=== PATIENT | male | born 1950 | race Caucasian/White ===

== ENCOUNTER 2024-11-10 13:17 | Outpatient (CLI) | payer MEDICARE, OTHER, SELFPAY ==
--- NOTE | ~2024-11-10 | CT_ITS ---
EXAMINATION:CT lung screening DATE: 11/10/2024 13:43 INDICATION: Personal history of nicotine dependence. 100 pack year history. TECHNIQUE: Computed tomography (CT) of the chest was performed without intravenous contrast. Automate d exposure control and iterative reconstruction technique were employed. The dose-length product (DLP ) was 170.15 mGy-cm. COMPARISON: None. FINDINGS: There is mild emphysema. There is mild scarring in paraspinal right lower lobe. Calcified b ilateral lung nodules and calcified right hilar lymph nodes are consistent with old granulomatous dis ease. There is a 5 mm nodule at right major fissure. There is a 5 mm nodule at left major fissure. No pleural effusion. The heart size is normal. There are coronary artery calcifications. No pericardial effusion. There are calcifications of the aortic valve. There are gallstones in the gallbladder, whi ch is normal in size. There is mild thoracic spondylosis. There is mild chronic height loss of T3 allie tebral body. There is an old healed fracture of the sternum. IMPRESSION: 1. Lung-RADS category 2: Benign appearance or behavior. Continue annual screening with noncontrast lo w-dose chest CT in 12 months. Reviewed, dictated and finalized at location A. CISE PHYSIOLOGY PROFESSOR IMPRESSION: 1. Lung-RADS category 2: Benign appearance or behavior. Continue annual screeni ng with noncontrast low-dose chest CT in 12 months.
== END 2024-11-10 13:18 | disposition home or self-care (01) ==
PROVIDERS: PCP Physician Assistant Medical; Visit Provider Physician Assistant Medical
DX: Z12.2 Encounter for screening for malignant neoplasm of respiratory organs (principal); Z87.891 Personal history of nicotine dependence
CPT/HCPCS: 71271

== ENCOUNTER 2025-05-09 09:45 | Outpatient (CLI) | payer MEDICARE, OTHER, SELFPAY ==
--- NOTE | ~2025-05-09 | US_ITS ---
EXAMINATION: US abdomen limited DATE: 05/09/2025 10:22 INDICATION: Cholelithiasis without acute cholecystitis TECHNIQUE: Multiple grayscale and Doppler ultrasound images of the abdomen were obtained. COMPARISON: None FINDINGS: The pancreatic head and body are normal in appearance. The pancreatic tail is not visualized. The vi sualized proximal to mid abdominal aorta and inferior vena cava are normal. Liver has normal echogeni city and contour, with a smooth surface. No liver lesion identified. No intrahepatic biliary duct dil ation suspected. Portal venous flow was seen in the hepatopetal, normal direction and has normal Dopp ler waveform. There is mild bilateral sludge and shadowing gallstones within the otherwise normal-shivani earing gallbladder. Common bile duct normal measuring 4 mm maximal diameter. Sonographic Arevalo sign was reported as negative by the firer watertender. IMPRESSION: 1. Mobile sludge and gallstones in the otherwise normal gallbladder. No findings of acute cholecystit is nor biliary ductal dilation. Reviewed, dictated and finalized at location A. IMPRESSION: 1. Mobile sludge and gallstones in the otherwise normal gallbladder. No finding s of acute cholecystitis nor biliary ductal dilation.
== END 2025-05-09 09:46 | disposition home or self-care (01) ==
PROVIDERS: PCP Physician Assistant Medical; Visit Provider Nurse Practitioner Family
DX: K80.20 Calculus of gallbladder without cholecystitis without obstruction (principal); R11.0 Nausea; R19.7 Diarrhea, unspecified
CPT/HCPCS: 76705

== ENCOUNTER 2025-11-13 10:52 | Outpatient (CLI) | payer MEDICARE, OTHER, SELFPAY ==
--- NOTE | ~2025-11-13 | CT_ITS ---
EXAMINATION: CT lung screening DATE: 11/13/2025 11:07 INDICATION: smoked 20 years, 5 PPD = 100 pack years Quit smoki TECHNIQUE: Computed tomography (CT) of the chest was performed without intravenous contrast. Additional 3D reconstructions utilizing coronal maximum intensity projection (MIP) were performed. Automated exposure control and iterative reconstruction technique were employed. The dose-length product was 15 1.82 mGy-cm. COMPARISON: 11/10/2024 FINDINGS: Mild emphysema. No interval change in a couple 5 mm triangular nodules along the left and right major fissures or an additional 7 mm triangular nodule along the right major fissure. A few small calcified nodules in the right lung along with calcified right hilar and mediastinal lymph nodes consistent with old granulomatous disease. No new or enlarging pulmonary nodules, pneumonia, pulmonary edema or pleural effusion. Heart size is normal. Atherosclerotic coronary artery calcifications. No pericardial effusion. Thoracic aorta is normal in caliber. No pathologically enlarged thoracic lymphadenopathy. Status post cholecystectomy. Visualized upper abdomen is otherwise unremarkable. Mild thoracic spondylosis. Unchanged chronic T3 compression fracture with mild depression of the anterior superior endplate. Old healed sternal fracture. Sclerotic bone island at the left sixth rib. IMPRESSION: 1. Lung-RADS category 2: Benign appearance or behavior. Continue annual screening with noncontrast low-dose chest CT in 12 months. Reviewed, dictated and finalized at location A. DER IMPRESSION: 1. Lung-RADS category 2: Benign appearance or behavior. Continue annual screeni ng with noncontrast low-dose chest CT in 12 months.
== END 2025-11-13 10:53 | disposition home or self-care (01) ==
PROVIDERS: PCP Physician Assistant Medical; Visit Provider Physician Assistant Medical
DX: Z12.2 Encounter for screening for malignant neoplasm of respiratory organs (principal); Z87.891 Personal history of nicotine dependence; Z77.090 Contact with and (suspected) exposure to asbestos; R91.1 Solitary pulmonary nodule
CPT/HCPCS: 71271